=== PATIENT | female | born 1985 | race Caucasian/White ===

== ENCOUNTER 2018-04-02 10:46 | Emergency (ER) | payer OTHER ==
[~2018-04-02] VITALS: Ht 175.3 cm; Wt 75.7 kg
[2018-04-02 11:15] VITALS: BP_SYST 136
[2018-04-02] MEDS ORDERED: ONDANSETRON HCL 4 MG/2 ML VIAL IVP ONE (12:45)
[2018-04-02] MEDS ORDERED: NACL 0.9% 1,000 ML IV ONE (12:45)
[2018-04-02 13:16] LABS: BASOPHILS % (AUTO) 0.4 % (0.0-2.0); EOSINOPHILS % (AUTO) 0.3 % (0.0-4.0); HEMATOCRIT 42.5 % (36-48); LYMPHOCYTES # (AUTO) 1.5 K/uL (1.0-5.5); LYMPHOCYTES % (AUTO) 14.6 % (20.5-51.5); MEAN CORPUSCULAR HEMOGLOBIN 29 pg (27-31); MEAN CORPUSCULAR HGB CONC 33 % (32-36); MEAN CORPUSCULAR VOLUME 88 fL (79.0-98.0); MONOCYTES # (AUTO) 0.5 K/uL (0.0-1.0); MONOCYTES % (AUTO) 5.2 % (1.7-9.3); NEUTROPHILS # (AUTO) 7.9 K/uL (1.8-7.7); NEUTROPHILS % (AUTO) 79.5 % (40.0-70.0); PLATELET COUNT (AUTO) 289 K/uL (130-430); RED BLOOD CELL COUNT(AUTO) 4.86 MIL/uL (4.2-6.2); RED CELL DISTRIBUTION WIDTH 12.4 % (9.0-15.0); WHITE BLOOD COUNT (AUTO) 9.9 K/uL (4.8-10.8)
[2018-04-02 13:27] LABS: CALCIUM 8.8 mg/dL (8.4-11.0); CREATININE 0.64 mg/dL (0.55-1.30)
[2018-04-02 13:31] LABS: BILIRUBIN,URINE 1+ (NEGATIVE); BLOOD, URINE NEGATIVE (NEGATIVE); CLARITY/URINE CLEAR (CLEAR); COLOR,URINE YELLOW (YELLOW); GLUCOSE,URINE NEGATIVE (NEGATIVE); KETONES,URINE 3+ (NEGATIVE); LEUKOCYTE ESTERASE ,URINE NEGATIVE (NEGATIVE); NITRITE, URINE NEGATIVE (NEGATIVE); PROTEIN URINE 2+ (NEGATIVE); UROBILINOGEN,URINE 0.2 (0.2-1.0)
[2018-04-02 13:48] LABS: BACTERIA,URINE MODERATE /HPF (None Seen); WBC,URINE 0-3 /HPF (0-3)
[2018-04-02 13:49] LABS: YEAST,URINE None Seen /HPF (None Seen)
[2018-04-02 13:52] LABS: ALBUMIN 3.7 g/dL (3.4-4.8); TOTAL BILIRUBIN 1.1 mg/dL (0.0-1.0)
[2018-04-02 13:54] LABS: RBC,URINE 0-3 /HPF (0-3)
[2018-04-02 13:55] LABS: FINE GRANULAR CASTS,URINE 0-10 /LPF (None Seen); MUCUS,URINE 1+ /LPF (None Seen)
[2018-04-02] MEDS ORDERED: POTASSIUM CHLORIDE 20 MEQ/PKT PACKET PO ONE (14:15)
[2018-04-02 15:05] VITALS: BP_SYST 119
== END 2018-04-02 15:04 | disposition home or self-care (01) ==
LOC: SED 10:46
DX: O21.1 Hyperemesis gravidarum with metabolic disturbance (principal); Z3A.12 12 weeks gestation of pregnancy
CPT/HCPCS: 36415; 76805; 80053; 81000; 81025; 83690; 84702; 85025; 87086; 96360; 99285; J7030; J2405

== ENCOUNTER 2018-05-23 10:39 | Observation (INO) | payer OTHER ==
[~2018-05-23] VITALS: Ht 175.3 cm; Wt 79.8 kg
[2018-05-23 10:39] VITALS: BP_SYST 131
--- NOTE | 2018-05-23 10:40 | NUR ---
TRIAGED AND BROUGHT BACK TO BED #7, TRIAGED. REPORT GIVEN TO DENTON
--- NOTE | 2018-05-23 10:51 | NUR ---
PT AAOX4, ABLE TO VERBALIZE NEEDS. PT 18 WEEKS , C/O CONTRACTIONS THAT BEGAN AROUND MIDNIGHT LAST NIGHT. PT STATES CONTRACTIONS WERE ABOUT 6 MINUTES APART AND ARE NOW ABOUT 10MIN APART. PT C/O 4/10 ABDOMINAL PAIN. PT DENIES VAGINAL BLEEDING.
[2018-05-23] MEDS ORDERED: NACL 0.9% 1,000 ML IV ONE (11:30)
[2018-05-23 11:55] LABS: BASOPHILS % (AUTO) 0.4 % (0.0-2.0); EOSINOPHILS # (AUTO) 0.1 K/uL (0.0-0.4); EOSINOPHILS % (AUTO) 0.8 % (0.0-4.0); HEMATOCRIT 34.1 % (36-48); HEMOGLOBIN 11.5 g/dL (12.0-16.0); LYMPHOCYTES # (AUTO) 1.9 K/uL (1.0-5.5); LYMPHOCYTES % (AUTO) 16.4 % (20.5-51.5); MEAN CORPUSCULAR HEMOGLOBIN 30 pg (27-31); MEAN CORPUSCULAR HGB CONC 34 % (32-36); MEAN CORPUSCULAR VOLUME 89 fL (79.0-98.0); MONOCYTES # (AUTO) 0.5 K/uL (0.0-1.0); MONOCYTES % (AUTO) 4.6 % (1.7-9.3); NEUTROPHILS # (AUTO) 9.3 K/uL (1.8-7.7); NEUTROPHILS % (AUTO) 77.8 % (40.0-70.0); PLATELET COUNT (AUTO) 259 K/uL (130-430); RED BLOOD CELL COUNT(AUTO) 3.84 MIL/uL (4.2-6.2); RED CELL DISTRIBUTION WIDTH 12.8 % (9.0-15.0); WHITE BLOOD COUNT (AUTO) 11.8 K/uL (4.8-10.8)
[2018-05-23 12:02] LABS: BILIRUBIN,URINE 1+ (NEGATIVE); BLOOD, URINE NEGATIVE (NEGATIVE); CLARITY/URINE CLEAR (CLEAR); COLOR,URINE YELLOW (YELLOW); GLUCOSE,URINE NEGATIVE (NEGATIVE); KETONES,URINE 3+ (NEGATIVE); LEUKOCYTE ESTERASE ,URINE TRACE (NEGATIVE); NITRITE, URINE NEGATIVE (NEGATIVE); PH,URINE 5.5 (5.0-8.0); PROTEIN URINE NEGATIVE (NEGATIVE); UROBILINOGEN,URINE 0.2 (0.2-1.0)
[2018-05-23 12:09] LABS: ALBUMIN 2.7 g/dL (3.4-4.8); CALCIUM 8.7 mg/dL (8.4-11.0); CREATININE 0.5 mg/dL (0.55-1.30); TOTAL BILIRUBIN 0.4 mg/dL (0.0-1.0)
[2018-05-23 12:10] LABS: POTASSIUM 3.4 mmol/L (3.5-5.1)
--- NOTE | 2018-05-23 12:21 | NUR ---
Pt off the unit for ultrasound.
--- NOTE | 2018-05-23 12:39 | NUR ---
RETURNED FROM ULTRASOUND, PLACED SAFELY BACK IN ROOM #7, MOTHER AT BEDSIDE.
--- NOTE | 2018-05-23 13:37 | NUR ---
PT CRYING IN BED, STATES CONTRACTIONS ARE EVERY 2 MINUTES AND ARE LASTING LONGER THAN BEFORE. DR BEGUM NOTIFIED. NO NEW ORDERS AT THIS TIME.
[2018-05-23] MEDS ORDERED: cefTRIAXone 1 GM IVPB PREMIX 50 ML IV ONE (14:00)
--- NOTE | 2018-05-23 14:05 | NUR ---
PELVIC EXAM DONE BY DR BEGUM. FRANKIE AT BEDSIDE. CULTURES COLLECTED AND SENT TO LAB.
[2018-05-23 14:11] LABS: RBC,URINE 0-3 /HPF (0-3)
[2018-05-23 14:12] LABS: BACTERIA,URINE FEW /HPF (None Seen)
--- NOTE | 2018-05-23 15:00 | NUR ---
PT TRANSFERRED TO OB BED 5 VIA [place]. RN AND EMT PRESENT. REPORT GIVEN TO OB NURSE.
[2018-05-23 15:01] VITALS: BP_SYST 131
== END 2018-05-23 17:35 | disposition home or self-care (01) ==
LOC: SED 10:39 → SPU 14:44
PROVIDERS: ADMIT Specialist; ATTEND Specialist
DX: O62.9 Abnormality of forces of labor, unspecified (principal); Z3A.19 19 weeks gestation of pregnancy
CPT/HCPCS: 36415; 76815; 80053; 81000; 81025; 83690; 85025; 96361; 96365; 99285; G0378; J0696

== ENCOUNTER 2018-07-06 13:59 | Emergency (ER) | payer OTHER ==
[~2018-07-06] VITALS: Ht 175.3 cm; Wt 81.6 kg
[2018-07-06 14:00] VITALS: BP_SYST 128
--- NOTE | 2018-07-06 14:00 | NUR ---
BROUGHT BACK TO BED #2 FROM OB, VIA WHEELCHAIR, REPORT GIVEN TO SHANNAN
--- NOTE | 2018-07-06 14:05 | NUR ---
DR. TOM, LINO PETER, AT THE BEDSIDE FOR PATIENT EVALUATION.
[2018-07-06] MEDS ORDERED: ONDANSETRON HCL 4 MG/2 ML VIAL IVP ONE (14:15)
[2018-07-06] MEDS ORDERED: NACL 0.9% 1,000 ML IV ONE (14:15)
[2018-07-06] MEDS ORDERED: MAG HYDROX/AL HYDROX/SIMETH 30 ML, BELLADONNA ALKALOIDS/PHENOBARB 10 ML, LIDOCAINE VISC... PO ONE ×3 (14:15)
--- NOTE | 2018-07-06 14:15 | NUR ---
PATIENT RECEIVED AWAKE AND ALERT FROM [employer] [employer]. PATIENT REPORTS TO ER FOR SOB, NAUSEA AND VOMITING. - 2ND, PARA-0, MISCARRIAGE-1 EZEQUIEL-10/15/2018 PATIENT DENIES ANY VAGINAL LEAKAGE OF FLUID, PATIENT HAS BEEN CLEARED BY OB. FRANKIE PRESLEY
--- NOTE | 2018-07-06 14:30 | NUR ---
PATIENT HAS BEEN MEDICATED ORDERED. IV NS BOLUS CONTINOUS. WILL CONTINUE TO MONITOR.
--- NOTE | 2018-07-06 15:25 | NUR ---
PATIENT AMBULATED TO THE BATHROOM W/STEADY GAIT. PATIENT'S IV REMAINS INTACT AND PATENT. AWAITING FOR FINAL DISPOSITION AT THIS TIME.
[2018-07-06 15:55] VITALS: BP_SYST 121
--- NOTE | 2018-07-06 15:56 | NUR ---
Patient able to tolerate PO well-crackers and water. Patient reports of decreased pain and nausea. Patient's vitals remain stable. PAtient has been medically cleared by Dr. Baltazar. Awaiting for d/c papers at this time. Patient has been aware of her current plan of care.
--- NOTE | 2018-07-06 16:11 | NUR ---
PATIENT HAS BEEN CLEARED FOR DC. ADVISED TO FOLLOW-UP WITH HER [employer] REPRESENTATIVE IN 2 DAYS, TO INCREASE HER FLUID INTAKE. IV HAS BEEN D/C, CATHETER INTACT AND BLEEDING CONTROLLED. PATIENT DC AWAKE AND ALERT, AMBULATES W/STEADY GAIT. WORK NOTE PROVIDED TO THE PATIENT PER REQUEST.
== END 2018-07-06 16:11 | disposition home or self-care (01) ==
LOC: SED 13:59 → EDSTATUS 13:59 → SED 16:11
DX: F41.9 Anxiety disorder, unspecified (principal); K21.9 Gastro-esophageal reflux disease without esophagitis; R11.2 Nausea with vomiting, unspecified; F43.10 Post-traumatic stress disorder, unspecified; Z88.1 Allergy status to other antibiotic agents; Z91.010 Allergy to peanuts; Z91.018 Allergy to other foods
CPT/HCPCS: 96361; 96374; 99283; J2001; J2405; J7030